=== PATIENT | male | born 1940 | race African-American/Black ===

== ENCOUNTER 2019-08-18 20:35 | Inpatient (IN) | payer MEDICARE, OTHER ==
[~2019-08-18] VITALS: Ht 160 cm; Wt 82.3 kg
[2019-08-18 11:47] VITALS: BP 164/85
[~2019-08-18 20:35] MED LIST: AMLO-500 MT; ASCO500C18 MT; CHOL100022; CYAN250010 PO; FENO145 PO; METO100T16 PO; VITA400C19 PO
[2019-08-18 20:45] VITALS: BP 164/85
[2019-08-18 21:40] VITALS: BP 164/85
[2019-08-18] MEDS ORDERED: ACETAMINOPHEN 325MG TABLET PO PRN (22:30)
[2019-08-18] MEDS ORDERED: BISACODYL 10MG SUPP PR PRN (22:30)
[2019-08-18] MEDS ORDERED: POLYETHYLENE GLYCOL 3350 (17GM) 1 DOSE PACK PO PRN (22:30)
[2019-08-18] MEDS ORDERED: CLONIDINE 0.1MG TABLET PO PRN (22:30)
[2019-08-18] MEDS ORDERED: TRAZODONE HCL 50MG TABLET PO PRN (22:30)
[2019-08-18] MEDS ORDERED: ONDANSETRON HCL 4MG/2ML INJ IV PRN (22:30)
[2019-08-19] MEDS: LACTULOSE 20G/30ML UDC PO SCH ×2 (00:34→13:00)
[2019-08-19] MEDS: SENNOSIDES/DOCUSATE SOD 8.6/50MG TABLET PO SCH ×2 (00:34→21:00)
[2019-08-19 08:00] VITALS: BP 129/63
[2019-08-19] MEDS: CHOLECALCIFEROL (D3) 1000 UNIT TABLET PO SCH (09:00)
[2019-08-19] MEDS: CARBAMIDE PEROXIDE 6.5% OTIC SOLN 15ML LEFT EAR SCH ×2 (10:15→16:09)
[2019-08-19] MEDS: CYANOCOBALAMIN 1000MCG TABLET PO SCH (10:15)
[2019-08-19] MEDS: AMLODIPINE 10MG TABLET PO SCH (10:16)
[2019-08-19] MEDS: MAGNESIUM HYDROXIDE 400MG/5ML 30ML UDC PO SCH (10:16)
[2019-08-19] MEDS: PREDNISONE 20MG TABLET PO SCH (10:16)
[2019-08-19] MEDS: DOCUSATE SODIUM 100MG CAPSULE PO SCH ×2 (10:17→16:09)
[2019-08-19] MEDS: METOPROLOL TARTRATE 50MG TABLET PO SCH (10:17)
[2019-08-19] MEDS: ASPIRIN 81MG TABLET PO SCH (10:17)
[2019-08-19] MEDS: ASCORBIC ACID 500 MG TABLET PO SCH (10:18)
[2019-08-19] MEDS: FENOFIBRATE NANOCRYSTALLIZED 145MG TABLET PO SCH (10:18)
[2019-08-19] MEDS: VITAMIN E ACETATE 400 UNITS CAPSULE PO SCH (10:18)
[2019-08-19] MEDS: HEPARIN 5000 UNITS/ML VIAL SUBCUT SCH ×2 (10:20→21:39)
[2019-08-19 16:01] LABS: BASOPHILS % 0.6 % (0.0-2.0); EOSINOPHILS % 0.2 % (0.0-5.0); HEMOGLOBIN. 14.4 g/dL (14.0-18.0); LYMPHOCYTES % 14.2 % (20.0-50.0); MEAN CORPUSCULAR HEMOGLOBIN 33.3 pg (28.0-32.0); MEAN CORPUSCULAR VOLUME 95.2 fL (80.0-94.0); MEAN PLATELET VOLUME 7.6 fl (7.4-10.4); MONOCYTES % 6.4 % (2.0-8.0); NEUTROPHILS % 78.6 % (40.0-76.0); PLATELET 283 x1000/uL (130-400); RED BLOOD CELL COUNT 4.31 mill/uL (4.7-6.1); RED CELL DISTRIBUTION WIDTH 13.9 % (11.6-14.6)
[2019-08-19 16:08] LABS: CHLORIDE 104 mEq/L (98-107)
[2019-08-19] MEDS ORDERED: HYDROCODONE/ACETAMINOPHEN 5/325MG TABLET PO PRN (16:45)
[2019-08-19 20:00] VITALS: BP 112/67
[2019-08-19] MEDS: POLYETHYLENE GLYCOL 3350 (17GM) 1 DOSE PACK PO SCH ×2 (21:00)
[2019-08-20 08:23] VITALS: BP 104/74
[2019-08-20 08:45] LABS: BASOPHILS % 0.5 % (0.0-2.0); EOSINOPHILS % 1.4 % (0.0-5.0); HEMATOCRIT. 43.5 % (42.0-52.0); HEMOGLOBIN. 14.7 g/dL (14.0-18.0); LYMPHOCYTES % 41.8 % (20.0-50.0); MEAN CORPUSCULAR HEMOGLOBIN 32.3 pg (28.0-32.0); MEAN CORPUSCULAR VOLUME 95.4 fL (80.0-94.0); MEAN PLATELET VOLUME 7.7 fl (7.4-10.4); MONOCYTES % 5.7 % (2.0-8.0); NEUTROPHILS % 50.6 % (40.0-76.0); PLATELET 285 x1000/uL (130-400); RED BLOOD CELL COUNT 4.56 mill/uL (4.7-6.1); RED CELL DISTRIBUTION WIDTH 14.1 % (11.6-14.6)
[2019-08-20 08:56] LABS: CHLORIDE 104 mEq/L (98-107)
[2019-08-20] MEDS: ASCORBIC ACID 500 MG TABLET PO SCH (09:00)
[2019-08-20] MEDS: CARBAMIDE PEROXIDE 6.5% OTIC SOLN 15ML LEFT EAR SCH ×2 (09:00→17:27)
[2019-08-20] MEDS: METOPROLOL TARTRATE 50MG TABLET PO SCH (09:00)
[2019-08-20] MEDS: CYANOCOBALAMIN 1000MCG TABLET PO SCH (09:00)
[2019-08-20] MEDS: ASPIRIN 81MG TABLET PO SCH (09:00)
[2019-08-20] MEDS: CHOLECALCIFEROL (D3) 1000 UNIT TABLET PO SCH (09:00)
[2019-08-20] MEDS: DOCUSATE SODIUM 100MG CAPSULE PO SCH ×2 (09:00→17:27)
[2019-08-20] MEDS: PREDNISONE 20MG TABLET PO SCH (09:00)
[2019-08-20] MEDS: VITAMIN E ACETATE 400 UNITS CAPSULE PO SCH (09:00)
[2019-08-20] MEDS: AMLODIPINE 10MG TABLET PO SCH (09:00)
[2019-08-20] MEDS: HEPARIN 5000 UNITS/ML VIAL SUBCUT SCH ×2 (09:00→22:21)
[2019-08-20] MEDS: FENOFIBRATE NANOCRYSTALLIZED 145MG TABLET PO SCH (09:00)
[2019-08-20] MEDS: MAGNESIUM HYDROXIDE 400MG/5ML 30ML UDC PO SCH (09:00)
[2019-08-20 09:03] LABS: PHOSPHORUS 3.4 mg/dL (2.5-4.9)
[2019-08-20 09:10] LABS: TOTAL IRON BINDING CAPACITY 333 ug/dL (250-450)
[2019-08-20 09:26] LABS: VITAMIN B12 SERUM >2000 pg/mL pg/mL (211-911)
[2019-08-20 20:00] VITALS: BP_SYST 108; BP_SYST 126; BP_DIAS 63; BP_DIAS 72
[2019-08-20 21:16] LABS: CLARITY URINE CLEAR (CLEAR); COLOR URINE YELLOW (YELLOW); KETONES URINE NEGATIVE (NEGATIVE); LEUKOCYTE ESTERASE URINE NEGATIVE (NEGATIVE); NITRITE URINE NEGATIVE (NEGATIVE); OCCULT BLOOD URINE NEGATIVE (NEGATIVE); PROTEIN URINE NEGATIVE (NEGATIVE); UROBILINOGEN URINE 0.2 E.U./dL (0.2-1.0)
[2019-08-20] MEDS: SENNOSIDES/DOCUSATE SOD 8.6/50MG TABLET PO SCH (22:19)
[2019-08-20] MEDS: ZOLPIDEM TARTRATE 5MG TABLET PO SCH (22:19)
[2019-08-20] MEDS: POLYETHYLENE GLYCOL 3350 (17GM) 1 DOSE PACK PO SCH (22:20)
[2019-08-21 08:00] VITALS: BP 143/79
[2019-08-21] MEDS: ASPIRIN 81MG TABLET PO SCH (09:00)
[2019-08-21] MEDS: METOPROLOL TARTRATE 50MG TABLET PO SCH (09:00)
[2019-08-21] MEDS: ASCORBIC ACID 500 MG TABLET PO SCH (09:00)
[2019-08-21] MEDS: VITAMIN E ACETATE 400 UNITS CAPSULE PO SCH (09:00)
[2019-08-21] MEDS: FENOFIBRATE NANOCRYSTALLIZED 145MG TABLET PO SCH (09:01)
[2019-08-21] MEDS: DOCUSATE SODIUM 100MG CAPSULE PO SCH ×2 (09:01→17:15)
[2019-08-21] MEDS: CHOLECALCIFEROL (D3) 1000 UNIT TABLET PO SCH (09:01)
[2019-08-21] MEDS: AMLODIPINE 10MG TABLET PO SCH (09:01)
[2019-08-21] MEDS: PREDNISONE 20MG TABLET PO SCH (09:01)
[2019-08-21] MEDS: CYANOCOBALAMIN 1000MCG TABLET PO SCH (09:01)
[2019-08-21] MEDS: HEPARIN 5000 UNITS/ML VIAL SUBCUT SCH ×2 (09:02→21:46)
[2019-08-21] MEDS: CARBAMIDE PEROXIDE 6.5% OTIC SOLN 15ML LEFT EAR SCH ×2 (09:02→17:16)
[2019-08-21] MEDS: MAGNESIUM HYDROXIDE 400MG/5ML 30ML UDC PO SCH ×2 (09:02→17:15)
[2019-08-21] MEDS: MECLIZINE 25MG TABLET PO PRN (14:38)
[2019-08-21] MEDS: LACTULOSE 20G/30ML UDC PO SCH ×2 (17:15→21:45)
[2019-08-21 20:00] VITALS: BP_SYST 118; BP_SYST 132; BP_DIAS 68; BP_DIAS 73
[2019-08-21] MEDS: SENNOSIDES/DOCUSATE SOD 8.6/50MG TABLET PO SCH (21:45)
[2019-08-21] MEDS: POLYETHYLENE GLYCOL 3350 (17GM) 1 DOSE PACK PO SCH (21:45)
[2019-08-21] MEDS: ZOLPIDEM TARTRATE 5MG TABLET PO SCH (21:45)
[2019-08-22 07:04] LABS: T4 FREE 1.19 ng/dL (0.76-1.46)
[2019-08-22 08:05] VITALS: BP 136/74
[2019-08-22] MEDS: LACTULOSE 20G/30ML UDC PO SCH (09:00)
[2019-08-22] MEDS: MECLIZINE 25MG TABLET PO PRN (09:41)
[2019-08-22] MEDS: FENOFIBRATE NANOCRYSTALLIZED 145MG TABLET PO SCH (09:41)
[2019-08-22] MEDS: MAGNESIUM HYDROXIDE 400MG/5ML 30ML UDC PO SCH ×2 (09:41→16:40)
[2019-08-22] MEDS: METOPROLOL TARTRATE 50MG TABLET PO SCH (09:41)
[2019-08-22] MEDS: HEPARIN 5000 UNITS/ML VIAL SUBCUT SCH ×2 (09:41→22:16)
[2019-08-22] MEDS: CYANOCOBALAMIN 1000MCG TABLET PO SCH (09:41)
[2019-08-22] MEDS: VITAMIN E ACETATE 400 UNITS CAPSULE PO SCH (09:41)
[2019-08-22] MEDS: AMLODIPINE 10MG TABLET PO SCH (09:42)
[2019-08-22] MEDS: ASPIRIN 81MG TABLET PO SCH (09:42)
[2019-08-22] MEDS: DOCUSATE SODIUM 100MG CAPSULE PO SCH ×2 (09:42→16:40)
[2019-08-22] MEDS: CARBAMIDE PEROXIDE 6.5% OTIC SOLN 15ML LEFT EAR SCH ×2 (09:43→16:40)
[2019-08-22] MEDS: ASCORBIC ACID 500 MG TABLET PO SCH (09:45)
[2019-08-22] MEDS: CHOLECALCIFEROL (D3) 1000 UNIT TABLET PO SCH (09:45)
[2019-08-22 20:00] VITALS: BP_SYST 120; BP_SYST 129; BP_DIAS 66; BP_DIAS 69
[2019-08-22] MEDS: SENNOSIDES/DOCUSATE SOD 8.6/50MG TABLET PO SCH (22:15)
[2019-08-22] MEDS: POLYETHYLENE GLYCOL 3350 (17GM) 1 DOSE PACK PO SCH (22:16)
[2019-08-22] MEDS: ZOLPIDEM TARTRATE 5MG TABLET PO SCH (22:16)
[2019-08-23 06:36] LABS: BASOPHILS % 0.6 % (0.0-2.0); HEMATOCRIT. 40.7 % (42.0-52.0); HEMOGLOBIN. 14.2 g/dL (14.0-18.0); LYMPHOCYTES % 48.4 % (20.0-50.0); MEAN CORPUSCULAR HEMOGLOBIN 32.8 pg (28.0-32.0); MEAN CORPUSCULAR VOLUME 94.3 fL (80.0-94.0); MEAN PLATELET VOLUME 7.5 fl (7.4-10.4); MONOCYTES % 10.3 % (2.0-8.0); NEUTROPHILS % 36.7 % (40.0-76.0); PLATELET 299 x1000/uL (130-400); RED BLOOD CELL COUNT 4.32 mill/uL (4.7-6.1); RED CELL DISTRIBUTION WIDTH 13.7 % (11.6-14.6)
[2019-08-23 08:08] VITALS: BP 125/67
[2019-08-23] MEDS: HEPARIN 5000 UNITS/ML VIAL SUBCUT SCH ×2 (08:40→20:24)
[2019-08-23] MEDS: DOCUSATE SODIUM 100MG CAPSULE PO SCH ×2 (08:40→16:08)
[2019-08-23] MEDS: MAGNESIUM HYDROXIDE 400MG/5ML 30ML UDC PO SCH ×2 (08:40→16:08)
[2019-08-23] MEDS: ASPIRIN 81MG TABLET PO SCH (08:40)
[2019-08-23] MEDS: VITAMIN E ACETATE 400 UNITS CAPSULE PO SCH (08:40)
[2019-08-23] MEDS: CARBAMIDE PEROXIDE 6.5% OTIC SOLN 15ML LEFT EAR SCH ×2 (08:40→16:08)
[2019-08-23] MEDS: ASCORBIC ACID 500 MG TABLET PO SCH (08:40)
[2019-08-23] MEDS: CHOLECALCIFEROL (D3) 1000 UNIT TABLET PO SCH (08:41)
[2019-08-23] MEDS: AMLODIPINE 10MG TABLET PO SCH (08:41)
[2019-08-23] MEDS: CYANOCOBALAMIN 1000MCG TABLET PO SCH (08:41)
[2019-08-23] MEDS: FENOFIBRATE NANOCRYSTALLIZED 145MG TABLET PO SCH (08:41)
[2019-08-23] MEDS: METOPROLOL TARTRATE 25MG TABLET PO SCH (08:41)
[2019-08-23] MEDS: MECLIZINE 25MG TABLET PO PRN (08:45)
[2019-08-23 20:00] VITALS: BP 147/71
[2019-08-23] MEDS: POLYETHYLENE GLYCOL 3350 (17GM) 1 DOSE PACK PO SCH (20:24)
[2019-08-23] MEDS: ZOLPIDEM TARTRATE 5MG TABLET PO SCH (20:24)
[2019-08-23] MEDS: SENNOSIDES/DOCUSATE SOD 8.6/50MG TABLET PO SCH (20:24)
[2019-08-24 08:00] VITALS: BP 124/67
[2019-08-24 09:06] LABS: 25-HYDROXY VITAMIN D3 33 ng/mL (.)
[2019-08-24] MEDS: CHOLECALCIFEROL (D3) 1000 UNIT TABLET PO SCH (09:29)
[2019-08-24] MEDS: ASPIRIN 81MG TABLET PO SCH (09:29)
[2019-08-24] MEDS: ASCORBIC ACID 500 MG TABLET PO SCH (09:29)
[2019-08-24] MEDS: CYANOCOBALAMIN 1000MCG TABLET PO SCH (09:29)
[2019-08-24] MEDS: FENOFIBRATE NANOCRYSTALLIZED 145MG TABLET PO SCH (09:29)
[2019-08-24] MEDS: AMLODIPINE 10MG TABLET PO SCH (09:30)
[2019-08-24] MEDS: HEPARIN 5000 UNITS/ML VIAL SUBCUT SCH ×2 (09:31→20:54)
[2019-08-24] MEDS: METOPROLOL TARTRATE 25MG TABLET PO SCH (09:32)
[2019-08-24] MEDS: DOCUSATE SODIUM 100MG CAPSULE PO SCH ×2 (09:37→17:30)
[2019-08-24] MEDS: VITAMIN E ACETATE 400 UNITS CAPSULE PO SCH (09:37)
[2019-08-24] MEDS: CARBAMIDE PEROXIDE 6.5% OTIC SOLN 15ML LEFT EAR SCH ×2 (09:38→17:32)
[2019-08-24] MEDS: MAGNESIUM HYDROXIDE 400MG/5ML 30ML UDC PO SCH ×3 (09:39→17:36)
[2019-08-24] MEDS: MECLIZINE 25MG TABLET PO PRN (12:31)
[2019-08-24 16:00] VITALS: BP_SYST 110; BP_SYST 118; BP_SYST 142; BP_DIAS 61; BP_DIAS 66; BP_DIAS 82
[2019-08-24] MEDS ORDERED: ERGOCALCIFEROL 50000UNITS CAPSULE PO SCH (16:00)
[2019-08-24] MEDS: CITALOPRAM HYDROBROMIDE 10MG TABLET PO SCH (17:30)
[2019-08-24 20:00] VITALS: BP 127/63
[2019-08-24] MEDS: ZOLPIDEM TARTRATE 5MG TABLET PO SCH (20:53)
[2019-08-24] MEDS: SENNOSIDES/DOCUSATE SOD 8.6/50MG TABLET PO SCH (20:54)
[2019-08-25 08:27] VITALS: BP 125/71
[2019-08-25] MEDS: METOPROLOL TARTRATE 25MG TABLET PO SCH ×2 (09:00→09:03)
[2019-08-25] MEDS: ASCORBIC ACID 500 MG TABLET PO SCH (09:02)
[2019-08-25] MEDS: DOCUSATE SODIUM 100MG CAPSULE PO SCH ×2 (09:02→17:02)
[2019-08-25] MEDS: CYANOCOBALAMIN 1000MCG TABLET PO SCH (09:02)
[2019-08-25] MEDS: VITAMIN E ACETATE 400 UNITS CAPSULE PO SCH (09:02)
[2019-08-25] MEDS: CITALOPRAM HYDROBROMIDE 10MG TABLET PO SCH (09:03)
[2019-08-25] MEDS: ASPIRIN 81MG TABLET PO SCH (09:03)
[2019-08-25] MEDS: FENOFIBRATE NANOCRYSTALLIZED 145MG TABLET PO SCH (09:03)
[2019-08-25] MEDS: CARBAMIDE PEROXIDE 6.5% OTIC SOLN 15ML LEFT EAR SCH ×2 (09:04→17:01)
[2019-08-25] MEDS: HEPARIN 5000 UNITS/ML VIAL SUBCUT SCH ×2 (09:04→22:10)
[2019-08-25] MEDS: AMLODIPINE 10MG TABLET PO SCH (09:04)
[2019-08-25] MEDS: HYDROCODONE/ACETAMINOPHEN 5/325MG TABLET PO PRN (11:00)
[2019-08-25] MEDS: MAGNESIUM HYDROXIDE 400MG/5ML 30ML UDC PO SCH (17:01)
[2019-08-25 20:00] VITALS: BP 117/84
[2019-08-25] MEDS: ZOLPIDEM TARTRATE 5MG TABLET PO SCH (21:00)
[2019-08-25] MEDS ORDERED: ZOLPIDEM TARTRATE 5MG TABLET PO SCH (21:00)
[2019-08-25] MEDS: SENNOSIDES/DOCUSATE SOD 8.6/50MG TABLET PO SCH (22:09)
[2019-08-26 07:52] VITALS: BP 147/72
[2019-08-26 08:00] VITALS: BP 141/78
[2019-08-26] MEDS: MAGNESIUM HYDROXIDE 400MG/5ML 30ML UDC PO SCH ×3 (08:34→16:46)
[2019-08-26] MEDS: METOPROLOL TARTRATE 25MG TABLET PO SCH (08:34)
[2019-08-26] MEDS: FENOFIBRATE NANOCRYSTALLIZED 145MG TABLET PO SCH (08:35)
[2019-08-26] MEDS: AMLODIPINE 10MG TABLET PO SCH (08:35)
[2019-08-26] MEDS: CITALOPRAM HYDROBROMIDE 10MG TABLET PO SCH (08:35)
[2019-08-26] MEDS: ASCORBIC ACID 500 MG TABLET PO SCH (08:35)
[2019-08-26] MEDS: VITAMIN E ACETATE 400 UNITS CAPSULE PO SCH (08:35)
[2019-08-26] MEDS: CYANOCOBALAMIN 1000MCG TABLET PO SCH (08:35)
[2019-08-26] MEDS: HEPARIN 5000 UNITS/ML VIAL SUBCUT SCH ×2 (08:36→20:46)
[2019-08-26] MEDS: DOCUSATE SODIUM 100MG CAPSULE PO SCH ×2 (08:36→16:45)
[2019-08-26] MEDS: ASPIRIN 81MG TABLET PO SCH (08:39)
[2019-08-26] MEDS: CARBAMIDE PEROXIDE 6.5% OTIC SOLN 15ML LEFT EAR SCH (09:38)
[2019-08-26 20:00] VITALS: BP 125/77
[2019-08-26] MEDS: SENNOSIDES/DOCUSATE SOD 8.6/50MG TABLET PO SCH (20:45)
[2019-08-26] MEDS: ZOLPIDEM TARTRATE 5MG TABLET PO PRN (20:45)
[2019-08-26 20:51] VITALS: BP_SYST 117; BP_SYST 137; BP_SYST 139; BP_DIAS 72; BP_DIAS 74; BP_DIAS 77
[2019-08-27 07:20] LABS: EOSINOPHILS % 4.4 % (0.0-5.0); HEMATOCRIT. 40.3 % (42.0-52.0); HEMOGLOBIN. 14.1 g/dL (14.0-18.0); LYMPHOCYTES % 45.8 % (20.0-50.0); MEAN CORPUSCULAR VOLUME 94.5 fL (80.0-94.0); PLATELET 294 x1000/uL (130-400); RED BLOOD CELL COUNT 4.26 mill/uL (4.7-6.1)
[2019-08-27 07:21] LABS: BASOPHILS % 0.8 % (0.0-2.0)
[2019-08-27 08:00] VITALS: BP_SYST 123; BP_SYST 131; BP_SYST 144; BP_DIAS 65; BP_DIAS 68; BP_DIAS 78
[2019-08-27] MEDS: MAGNESIUM HYDROXIDE 400MG/5ML 30ML UDC PO SCH ×2 (09:00→16:49)
[2019-08-27] MEDS: METOPROLOL TARTRATE 25MG TABLET PO SCH (09:00)
[2019-08-27] MEDS: HEPARIN 5000 UNITS/ML VIAL SUBCUT SCH ×2 (09:03→21:36)
[2019-08-27] MEDS: ASCORBIC ACID 500 MG TABLET PO SCH (09:25)
[2019-08-27] MEDS: CYANOCOBALAMIN 1000MCG TABLET PO SCH (09:25)
[2019-08-27] MEDS: ASPIRIN 81MG TABLET PO SCH (09:25)
[2019-08-27] MEDS: CITALOPRAM HYDROBROMIDE 10MG TABLET PO SCH (09:26)
[2019-08-27] MEDS: HYDROCODONE/ACETAMINOPHEN 5/325MG TABLET PO PRN (09:26)
[2019-08-27] MEDS: FENOFIBRATE NANOCRYSTALLIZED 145MG TABLET PO SCH (09:26)
[2019-08-27] MEDS: VITAMIN E ACETATE 400 UNITS CAPSULE PO SCH (09:26)
[2019-08-27] MEDS: AMLODIPINE 10MG TABLET PO SCH (09:26)
[2019-08-27] MEDS: DOCUSATE SODIUM 100MG CAPSULE PO SCH ×2 (09:26→16:49)
[2019-08-27 20:00] VITALS: BP_SYST 128; BP_SYST 142; BP_DIAS 69; BP_DIAS 84
[2019-08-27 21:00] VITALS: BP_SYST 128; BP_SYST 130; BP_SYST 138; BP_DIAS 74; BP_DIAS 77; BP_DIAS 80
[2019-08-27] MEDS: SENNOSIDES/DOCUSATE SOD 8.6/50MG TABLET PO SCH (21:35)
[2019-08-27] MEDS: ZOLPIDEM TARTRATE 5MG TABLET PO PRN (21:51)
[2019-08-28 08:00] VITALS: BP 146/80
[2019-08-28] MEDS: ASPIRIN 81MG TABLET PO SCH (09:20)
[2019-08-28] MEDS: DOCUSATE SODIUM 100MG CAPSULE PO SCH ×2 (09:20→16:24)
[2019-08-28] MEDS: VITAMIN E ACETATE 400 UNITS CAPSULE PO SCH (09:20)
[2019-08-28] MEDS: MAGNESIUM HYDROXIDE 400MG/5ML 30ML UDC PO SCH ×2 (09:20→16:23)
[2019-08-28] MEDS: FENOFIBRATE NANOCRYSTALLIZED 145MG TABLET PO SCH (09:20)
[2019-08-28] MEDS: ASCORBIC ACID 500 MG TABLET PO SCH (09:21)
[2019-08-28] MEDS: CITALOPRAM HYDROBROMIDE 10MG TABLET PO SCH (09:21)
[2019-08-28] MEDS: HEPARIN 5000 UNITS/ML VIAL SUBCUT SCH ×2 (09:21→21:42)
[2019-08-28] MEDS: METOPROLOL TARTRATE 25MG TABLET PO SCH (09:22)
[2019-08-28] MEDS: AMLODIPINE 10MG TABLET PO SCH (09:22)
[2019-08-28] MEDS: CYANOCOBALAMIN 1000MCG TABLET PO SCH (10:49)
[2019-08-28] MEDS ORDERED: CITA10TA16 PO (14:28)
[2019-08-28] MEDS ORDERED: TOPUD PO (14:28)
[2019-08-28] MEDS ORDERED: ASPI-1160 PO (14:28)
[2019-08-28] MEDS ORDERED: METO25TA6 PO (14:28)
[2019-08-28] MEDS ORDERED: FENO145 PO (14:28)
[2019-08-28] MEDS ORDERED: AMLO10TA80 PO (14:28)
[2019-08-28] MEDS ORDERED: MOM PO (14:28)
[2019-08-28] MEDS ORDERED: SENN-3 PO (14:28)
[2019-08-28] MEDS ORDERED: DOCU-150 PO (14:28)
[2019-08-28] MEDS ORDERED: MECL-159 MT (14:29)
[2019-08-28] MEDS ORDERED: CITALOPRAM HYDROBROMIDE 10MG TABLET PO NR (14:30)
[2019-08-28 19:39] LABS: FERRITIN 131 ng/mL (22-322)
[2019-08-28 20:00] VITALS: BP 153/83
[2019-08-28] MEDS ORDERED: TRAZODONE HCL 50MG TABLET PO SCH (21:00)
[2019-08-28 21:32] LABS: PROSTRATE SPECIFIC AG TOTAL 1.03 ng/mL (0.0-4.0)
[2019-08-28] MEDS: SENNOSIDES/DOCUSATE SOD 8.6/50MG TABLET PO SCH (21:41)
[2019-08-29 08:00] VITALS: BP 152/84
[2019-08-29] MEDS: MAGNESIUM HYDROXIDE 400MG/5ML 30ML UDC PO SCH ×2 (08:50→16:30)
[2019-08-29] MEDS: FENOFIBRATE NANOCRYSTALLIZED 145MG TABLET PO SCH (08:50)
[2019-08-29] MEDS: HEPARIN 5000 UNITS/ML VIAL SUBCUT SCH (08:50)
[2019-08-29] MEDS: ASCORBIC ACID 500 MG TABLET PO SCH (08:52)
[2019-08-29] MEDS: ASPIRIN 81MG TABLET PO SCH (08:52)
[2019-08-29] MEDS: CYANOCOBALAMIN 1000MCG TABLET PO SCH (08:52)
[2019-08-29] MEDS: VITAMIN E ACETATE 400 UNITS CAPSULE PO SCH (08:52)
[2019-08-29] MEDS: METOPROLOL TARTRATE 25MG TABLET PO SCH (08:52)
[2019-08-29] MEDS: AMLODIPINE 10MG TABLET PO SCH (08:52)
[2019-08-29] MEDS: DOCUSATE SODIUM 100MG CAPSULE PO SCH ×2 (08:56→16:30)
[2019-08-29] MEDS ORDERED: CITALOPRAM HYDROBROMIDE 10MG TABLET PO SCH (09:00)
[2019-08-29 12:31] VITALS: BP 136/73
== END 2019-08-29 18:10 | disposition home health service (06) | DRG 155 ==
PROVIDERS: ADMIT Physical Medicine & Rehabilitation Spinal Cord Injury Medicine; ATTEND Internal Medicine
PROC: 4A00X4Z Measurement of Central Nervous Electrical Activity, External Approach (ICD-10-PCS; principal; 2019-08-18)
DX: H93.3X2 Disorders of left acoustic nerve (principal); N17.9 Acute kidney failure, unspecified; D64.9 Anemia, unspecified; E78.5 Hyperlipidemia, unspecified; K21.9 Gastro-esophageal reflux disease without esophagitis; J44.9 Chronic obstructive pulmonary disease, unspecified; F17.210 Nicotine dependence, cigarettes, uncomplicated; G62.9 Polyneuropathy, unspecified; I73.9 Peripheral vascular disease, unspecified; K59.00 Constipation, unspecified; E03.9 Hypothyroidism, unspecified; B35.1 Tinea unguium; G47.00 Insomnia, unspecified; G47.30 Sleep apnea, unspecified; K42.9 Umbilical hernia without obstruction or gangrene; M17.0 Bilateral primary osteoarthritis of knee; R73.9 Hyperglycemia, unspecified; G90.8 Other disorders of autonomic nervous system; I12.9 Hypertensive chronic kidney disease with stage 1 through stage 4 chronic kidney disease, or unspecified chronic kidney disease; N18.9 Chronic kidney disease, unspecified; Z79.899 Other long term (current) drug therapy; Z83.3 Family history of diabetes mellitus; R20.0 Anesthesia of skin; J20.9 Acute bronchitis, unspecified; R53.81 Other malaise; H83.02 Labyrinthitis, left ear; E55.9 Vitamin D deficiency, unspecified
CPT/HCPCS: 36415; 80048; 80053; 81003; 82306; 82607; 82728; 82746; 83036; 83540; 83550; 83735; 84100; 84134; 84153; 84439; 84443; 84481; 85025; 86376; 93970; 97110; 97112; 97116; 97162; 97166; 97530; 97535; J1644; J7512; J8597; G0103

== ENCOUNTER 2024-05-19 20:35 | Inpatient (IN) | payer MEDICARE, MEDICAID ==
[~2024-05-19] VITALS: Ht 162.6 cm; Wt 82.1 kg
[2024-05-19 19:55] VITALS: BP 128/62; PULSE 74; RESP 18; TEMP 36.5; O2SAT 97
[2024-05-19 20:00] VITALS: BP 128/62; PULSE 74; RESP 18; TEMP 36.5
[~2024-05-19 20:35] MED LIST changes: -AMLO-500 MT; +AMLO10TA80 PO; +ASPI-1160 PO; +CITA10TA16 PO; +DOCU-422 PO; +MECL-299 MT; -METO100T16 PO; +METO25TA6 PO; +MOM PO; +SENN-3 PO; +SUMA100T16 PO; +TOPUD PO; +VITA-358 PO; -VITA400C19 PO
[2024-05-19] MEDS ORDERED: NALOXONE HCL 0.4MG/ML 1ML VIAL IV PRN (21:00)
[2024-05-19] MEDS ORDERED: SUMATRIPTAN SUCCINATE 25MG TABLET PO PRN (21:00)
[2024-05-19] MEDS: METOPROLOL TARTRATE 50MG TABLET PO SCH (22:15)
[2024-05-19] MEDS: DOCUSATE SODIUM 100MG CAPSULE PO SCH (22:15)
[2024-05-19] MEDS: LACTATED RINGERS 1,000 ML IV SCH (22:15)
[2024-05-19] MEDS: OXYBUTYNIN CHLORIDE 5MG TABLET PO SCH (22:15)
[2024-05-19] MEDS: HYDROCODONE/ACETAMINOPHEN 10/325MG TABLET PO PRN (22:18)
[2024-05-20] MEDS: CEFTRIAXONE 1GM/50ML 50 ML IV SCH (05:01)
[2024-05-20 07:03] LABS: CHLORIDE 98 mEq/L (98-107); POTASSIUM 4.5 mEq/L (3.5-5.1); SODIUM 134 mEq/L (136-145)
[2024-05-20 07:07] LABS: CALCIUM 9.7 mg/dL (8.7-10.4); CARBON DIOXIDE 29 mEq/L (21-32)
[2024-05-20 07:09] LABS: BASOPHILS % 0.5 % (0.0-2.0); EOSINOPHILS % 5.9 % (0.0-5.0); HEMATOCRIT. 29.9 % (42.0-52.0); HEMOGLOBIN. 10.1 g/dL (14.0-18.0); LYMPHOCYTES % 26.8 % (20.0-50.0); MEAN CORPUSCULAR HEMOGLOBIN 31.5 pg (28.0-32.0); MEAN CORPUSCULAR VOLUME 92.7 fL (80.0-94.0); MEAN PLATELET VOLUME 6.9 fl (7.4-10.4); MONOCYTES % 13.2 % (2.0-8.0); NEUTROPHILS % 53.6 % (40.0-76.0); PLATELET 385 x1000/uL (130-400); RED BLOOD CELL COUNT 3.22 mill/uL (4.7-6.1); RED CELL DISTRIBUTION WIDTH 12.8 % (11.6-14.6); WHITE BLOOD COUNT 6.7 x1000/uL (4.5-11.0)
[2024-05-20 07:12] LABS: CREATININE 1.2 mg/dL (0.6-1.3); GLUCOSE 91 mg/dL (70-105); UREA NITROGEN BLOOD 24 mg/dL (9-23)
[2024-05-20 07:14] LABS: ALANINE AMINOTRANSFERASE 29 IU/L (10-49); ALBUMIN 3.3 g/dL (3.2-4.8); ASPARTATE AMINOTRANSFERASE 34 IU/L (<34); BILIRUBIN TOTAL 0.3 mg/dL (0.1-1.0); PREALBUMIN 9.5 mg/dl (10.0-40.0)
[2024-05-20 07:15] LABS: PROTEIN TOTAL 6.7 g/dL (6.0-8.3)
[2024-05-20 08:00] VITALS: BP 137/63; PULSE 52; RESP 19; TEMP 35.8; O2SAT 99
[2024-05-20] MEDS: CITALOPRAM HYDROBROMIDE 10MG TABLET PO SCH (08:51)
[2024-05-20] MEDS: AMLODIPINE 10MG TABLET PO SCH (08:51)
[2024-05-20] MEDS: ASPIRIN 81MG TABLET PO SCH (08:51)
[2024-05-20] MEDS: LACTULOSE 20G/30ML UDC PO STA (13:43)
[2024-05-20 20:00] VITALS: BP 149/72; PULSE 68; RESP 20; TEMP 36.6; O2SAT 97
[2024-05-21 08:00] VITALS: BP 152/65; PULSE 58; RESP 19; TEMP 36.1; O2SAT 98
[2024-05-21] MEDS: LEVOFLOXACIN 500MG TABLET PO SCH (11:27)
[2024-05-21 11:35] LABS: BASOPHILS % 0.5 % (0.0-2.0); EOSINOPHILS % 4.5 % (0.0-5.0); HEMATOCRIT. 28.6 % (42.0-52.0); HEMOGLOBIN. 9.8 g/dL (14.0-18.0); LYMPHOCYTES % 18.2 % (20.0-50.0); MEAN CORPUSCULAR HEMOGLOBIN 31.6 pg (28.0-32.0); MEAN CORPUSCULAR HGB CONC 34.2 g/dL (31.0-37.0); MEAN CORPUSCULAR VOLUME 92.3 fL (80.0-94.0); MEAN PLATELET VOLUME 6.5 fl (7.4-10.4); MONOCYTES % 10.9 % (2.0-8.0); NEUTROPHILS % 65.9 % (40.0-76.0); PLATELET 401 x1000/uL (130-400); RED CELL DISTRIBUTION WIDTH 12.8 % (11.6-14.6); WHITE BLOOD COUNT 7.3 x1000/uL (4.5-11.0)
[2024-05-21 11:50] LABS: CHLORIDE 95 mEq/L (98-107); POTASSIUM 3.7 mEq/L (3.5-5.1); SODIUM 131 mEq/L (136-145)
[2024-05-21 11:51] LABS: CALCIUM 9.4 mg/dL (8.7-10.4); CARBON DIOXIDE 27 mEq/L (21-32)
[2024-05-21 11:55] LABS: IRON 46 ug/dL (65-175)
[2024-05-21 11:56] LABS: AMMONIA 26 uMol/L (<32); CREATININE 1.1 mg/dL (0.6-1.3); GLUCOSE 110 mg/dL (70-105); UREA NITROGEN BLOOD 19 mg/dL (9-23)
[2024-05-21 11:57] LABS: ALANINE AMINOTRANSFERASE 31 IU/L (10-49)
[2024-05-21 11:58] LABS: ALBUMIN 3.3 g/dL (3.2-4.8); ASPARTATE AMINOTRANSFERASE 36 IU/L (<34); BILIRUBIN TOTAL 0.3 mg/dL (0.1-1.0); CREATINE KINASE 155 IU/L (46-171); PROTEIN TOTAL 6.6 g/dL (6.0-8.3); TOTAL IRON BINDING CAPACITY 471 ug/dl (250-425)
[2024-05-21 11:59] LABS: FERRITIN 194 ng/mL (22-322); FOLIC ACID (FOLATE) SERUM 10.48 ng/mL (>5.38)
[2024-05-21 12:00] LABS: THYROID STIMULATING HORMONE 7.12 uIU/mL (0.55-4.78)
[2024-05-21 12:09] LABS: VITAMIN B12 SERUM > 2000 pg/mL (211-911)
[2024-05-21] MEDS: BISACODYL 10MG SUPP PR NR (14:09)
[2024-05-21] MEDS: LACTULOSE 20G/30ML UDC PO SCH (14:09)
[2024-05-21 20:00] VITALS: BP 133/60; PULSE 56; RESP 18; TEMP 35.9; O2SAT 99
[2024-05-22 08:00] VITALS: BP 147/69; PULSE 68; RESP 19; TEMP 36.1; O2SAT 99
[2024-05-22 11:31] LABS: BASOPHILS % 0.5 % (0.0-2.0); EOSINOPHILS % 3.3 % (0.0-5.0); HEMATOCRIT. 29.7 % (42.0-52.0); HEMOGLOBIN. 10.1 g/dL (14.0-18.0); LYMPHOCYTES % 18.9 % (20.0-50.0); MEAN CORPUSCULAR HEMOGLOBIN 31.7 pg (28.0-32.0); MEAN CORPUSCULAR HGB CONC 34.1 g/dL (31.0-37.0); MEAN PLATELET VOLUME 6.9 fl (7.4-10.4); MONOCYTES % 10.3 % (2.0-8.0); PLATELET 427 x1000/uL (130-400); RED BLOOD CELL COUNT 3.19 mill/uL (4.7-6.1); RED CELL DISTRIBUTION WIDTH 12.8 % (11.6-14.6); WHITE BLOOD COUNT 6.9 x1000/uL (4.5-11.0)
[2024-05-22 11:40] LABS: CHLORIDE 93 mEq/L (98-107); POTASSIUM 3.6 mEq/L (3.5-5.1)
[2024-05-22 11:41] LABS: CARBON DIOXIDE 29 mEq/L (21-32); SODIUM 132 mEq/L (136-145)
[2024-05-22 11:42] LABS: CALCIUM 9.8 mg/dL (8.7-10.4)
[2024-05-22 11:46] LABS: CREATININE 1.3 mg/dL (0.6-1.3)
[2024-05-22 11:47] LABS: GLUCOSE 84 mg/dL (70-105); UREA NITROGEN BLOOD 17 mg/dL (9-23)
[2024-05-22 11:57] LABS: VITAMIN B12 SERUM > 2000 pg/mL (211-911)
[2024-05-22 20:00] VITALS: BP 154/69; PULSE 68; RESP 20; TEMP 36.7; O2SAT 98
[2024-05-23 08:00] VITALS: BP 127/65; PULSE 68; RESP 18; TEMP 36.3; O2SAT 97
[2024-05-23 11:10] VITALS: BP 127/65; PULSE 68; RESP 18; TEMP 36.3; O2SAT 97
[2024-05-23] MEDS: ERGOCALCIFEROL 50000UNITS CAPSULE PO SCH (17:41)
[2024-05-23 20:11] VITALS: BP 141/62; PULSE 54; RESP 19; TEMP 36.2; O2SAT 98
[2024-05-24 08:00] VITALS: BP 150/69; PULSE 58; RESP 16; TEMP 36.4; O2SAT 98
[2024-05-24 18:19] LABS: BASOPHILS % 1.3 % (0.0-2.0); EOSINOPHILS % 4.1 % (0.0-5.0); HEMATOCRIT. 31.9 % (42.0-52.0); HEMOGLOBIN. 10.7 g/dL (14.0-18.0); LYMPHOCYTES % 25.1 % (20.0-50.0); MEAN CORPUSCULAR HEMOGLOBIN 31.5 pg (28.0-32.0); MEAN CORPUSCULAR HGB CONC 33.5 g/dL (31.0-37.0); MEAN PLATELET VOLUME 6.7 fl (7.4-10.4); MONOCYTES % 14.3 % (2.0-8.0); NEUTROPHILS % 55.2 % (40.0-76.0); PLATELET 454 x1000/uL (130-400); RED BLOOD CELL COUNT 3.39 mill/uL (4.7-6.1); WHITE BLOOD COUNT 7.6 x1000/uL (4.5-11.0)
[2024-05-24 18:27] LABS: CHLORIDE 96 mEq/L (98-107); SODIUM 135 mEq/L (136-145)
[2024-05-24 18:28] LABS: CARBON DIOXIDE 30 mEq/L (21-32)
[2024-05-24 18:29] LABS: CALCIUM 9.9 mg/dL (8.7-10.4)
[2024-05-24 18:33] LABS: CREATININE 1.2 mg/dL (0.6-1.3); GLUCOSE 105 mg/dL (70-105); UREA NITROGEN BLOOD 16 mg/dL (9-23)
[2024-05-24 20:00] VITALS: BP 125/70; PULSE 66; RESP 20; TEMP 36.1; O2SAT 98
[2024-05-25 08:00] VITALS: BP 155/76; PULSE 65; RESP 19; TEMP 36.8; O2SAT 98
[2024-05-25] MEDS: HYDROCODONE/ACETAMINOPHEN 10/325MG TABLET PO PRN (12:11)
[2024-05-25 20:12] VITALS: BP 146/77; PULSE 91; RESP 20; TEMP 36.5; O2SAT 99
[2024-05-26 08:00] VITALS: BP 125/59; PULSE 60; RESP 18; TEMP 36.4; O2SAT 99
[2024-05-26 20:08] VITALS: BP 141/62; PULSE 77; RESP 19; TEMP 36.5; O2SAT 97
[2024-05-27 08:00] VITALS: BP 148/65; PULSE 64; RESP 19; TEMP 36.2; O2SAT 96
[2024-05-27] MEDS: DOCUSATE SODIUM 100MG CAPSULE PO SCH (09:31)
[2024-05-27] MEDS: LACTULOSE 20G/30ML UDC PO SCH (09:31)
[2024-05-27] MEDS: MECLIZINE 25MG TABLET PO PRN (09:34)
[2024-05-27] MEDS: LACTULOSE 20G/30ML UDC PO PRN (14:49)
[2024-05-27 20:00] VITALS: BP 129/53; PULSE 64; RESP 19; TEMP 36.3; O2SAT 99
[2024-05-27] MEDS: FENOFIBRATE NANOCRYSTALLIZED 145MG TABLET PO SCH (21:03)
[2024-05-27] MEDS: DOCUSATE SODIUM 100MG CAPSULE PO PRN (21:04)
[2024-05-28 08:00] VITALS: BP 129/55; PULSE 55; RESP 18; TEMP 36.3; O2SAT 97
[2024-05-28 20:00] VITALS: BP 124/42; PULSE 95; RESP 18; TEMP 36.6; O2SAT 98
[2024-05-29 08:00] VITALS: BP 148/70; PULSE 57; RESP 57; TEMP 36.2; O2SAT 99
[2024-05-29 20:00] VITALS: BP 135/59; PULSE 74; RESP 19; TEMP 36.7; O2SAT 99
[2024-05-30 06:52] LABS: CARBON DIOXIDE 28 mEq/L (21-32); CHLORIDE 98 mEq/L (98-107); POTASSIUM 3.7 mEq/L (3.5-5.1); SODIUM 135 mEq/L (136-145)
[2024-05-30 06:53] LABS: CALCIUM 9.4 mg/dL (8.7-10.4)
[2024-05-30 06:56] LABS: CREATININE 1.2 mg/dL (0.6-1.3)
[2024-05-30 06:57] LABS: GLUCOSE 86 mg/dL (70-105)
[2024-05-30 06:58] LABS: UREA NITROGEN BLOOD 15 mg/dL (9-23)
[2024-05-30 07:02] LABS: HEMATOCRIT. 30.4 % (42.0-52.0); HEMOGLOBIN. 10.4 g/dL (14.0-18.0); MEAN CORPUSCULAR HEMOGLOBIN 31.7 pg (28.0-32.0); MEAN CORPUSCULAR HGB CONC 34.3 g/dL (31.0-37.0); MEAN CORPUSCULAR VOLUME 92.4 fL (80.0-94.0); MEAN PLATELET VOLUME 6.7 fl (7.4-10.4); PLATELET 419 x1000/uL (130-400); RED BLOOD CELL COUNT 3.29 mill/uL (4.7-6.1); RED CELL DISTRIBUTION WIDTH 13.6 % (11.6-14.6); WHITE BLOOD COUNT 7.4 x1000/uL (4.5-11.0)
[2024-05-30 08:00] VITALS: BP 130/57; PULSE 65; RESP 18; TEMP 36.5; O2SAT 98
[2024-05-30 08:08] LABS: DIFFERENTIAL COMMENT 1
[2024-05-30 17:33] LABS: PLATELET ESTIMATE INCREASED
[2024-05-30 20:00] VITALS: BP 120/66; PULSE 65; RESP 19; TEMP 36.4; O2SAT 96
[2024-05-31 08:00] VITALS: BP 115/64; PULSE 57; RESP 18; TEMP 36.1; O2SAT 97
[2024-05-31 20:08] VITALS: BP 138/59; PULSE 63; RESP 18; TEMP 36.4; O2SAT 99
[2024-06-01 08:00] VITALS: BP 133/55; PULSE 60; RESP 20; TEMP 36.4; O2SAT 99
[2024-06-01 20:00] VITALS: BP 134/61; PULSE 87; RESP 19; TEMP 36.7; O2SAT 99
[2024-06-02] VITALS (10 sets, daily range): BP systolic 73–146; BP diastolic 42–66; PULSE 54–74; RESP 8–20; TEMP 36.1–36.8; O2SAT 95–98
[2024-06-02] MEDS: HYDROCODONE/ACETAMINOPHEN 10/325MG TABLET PO PRN (08:13)
[2024-06-02] MEDS: NALOXONE HCL 0.4MG/ML VIAL IV PRN (10:04)
[2024-06-02] MEDS: SODIUM CHLORIDE 0.9% 500 ML IV ONE (10:37)
[2024-06-02] MEDS ORDERED: IPRATROPIUM/ALBUTEROL 0.5-3(2.5)MG/3ML NEB HHN SCH ×2 (11:00→12:00)
[2024-06-02 13:24] LABS: DIFFERENTIAL COMMENT 1; HEMOGLOBIN. 10.3 g/dL (14.0-18.0); MEAN CORPUSCULAR HGB CONC 33.3 g/dL (31.0-37.0); MEAN CORPUSCULAR VOLUME 93.1 fL (80.0-94.0); MEAN PLATELET VOLUME 6.5 fl (7.4-10.4); PLATELET 359 x1000/uL (130-400); RED BLOOD CELL COUNT 3.33 mill/uL (4.7-6.1); RED CELL DISTRIBUTION WIDTH 13.5 % (11.6-14.6); WHITE BLOOD COUNT 6.2 x1000/uL (4.5-11.0)
[2024-06-02 13:46] LABS: CHLORIDE 98 mEq/L (98-107); SODIUM 133 mEq/L (136-145)
[2024-06-02 13:47] LABS: CARBON DIOXIDE 29 mEq/L (21-32)
[2024-06-02 13:48] LABS: CALCIUM 9.7 mg/dL (8.7-10.4)
[2024-06-02 13:52] LABS: GLUCOSE 105 mg/dL (70-105); UREA NITROGEN BLOOD 17 mg/dL (9-23)
[2024-06-02] MEDS ORDERED: IPRATROPIUM/ALBUTEROL 0.5-3(2.5)MG/3ML NEB HHN PRN (15:15)
[2024-06-03 08:00] VITALS: BP 135/66; PULSE 75; RESP 19; TEMP 35.8
[2024-06-03 08:17] VITALS: BP 135/66; PULSE 75; RESP 18; TEMP 36.8
[2024-06-03 09:30] LABS: PLATELET ESTIMATE NORMAL
[2024-06-03 20:02] VITALS: BP 127/84; PULSE 60; RESP 18; TEMP 36.8
[2024-06-04 08:00] VITALS: BP 135/70; PULSE 64; RESP 18; TEMP 35.7; O2SAT 99
[2024-06-04 20:00] VITALS: BP 124/75; PULSE 84; RESP 20; TEMP 36.5; O2SAT 98
[2024-06-04] MEDS: HYDROCODONE/ACETAMINOPHEN 5/325MG TABLET PO PRN (20:33)
[2024-06-05 08:00] VITALS: BP 130/73; PULSE 66; RESP 17; TEMP 36.6; O2SAT 97
[2024-06-05 20:00] VITALS: BP 134/72; PULSE 70; RESP 18; TEMP 36.4; O2SAT 99
[2024-06-05] MEDS ORDERED: GUAIFENESIN 200MG/10ML SUGAR FREE UDC PO PRN (20:15)
[2024-06-06 08:00] VITALS: BP 138/67; PULSE 73; RESP 18; TEMP 36.3; O2SAT 100
[2024-06-06 20:00] VITALS: BP 126/55; PULSE 67; RESP 20; TEMP 36.7; O2SAT 96
[2024-06-07 08:00] VITALS: BP 129/66; PULSE 65; RESP 20; TEMP 36.4; O2SAT 99
[2024-06-07 20:00] VITALS: BP 139/52; PULSE 56; RESP 18; TEMP 36.1; O2SAT 97
[2024-06-08 08:00] VITALS: BP 145/75; PULSE 65; RESP 18; TEMP 36.6; O2SAT 96
[2024-06-08 12:00] VITALS: BP 145/75; PULSE 65; RESP 18; TEMP 36.6; O2SAT 96
[2024-06-08 20:00] VITALS: BP 130/59; PULSE 74; RESP 18; TEMP 36.4; O2SAT 95
[2024-06-09 08:00] VITALS: BP 131/68; PULSE 68; RESP 19; TEMP 36.4; O2SAT 95
[2024-06-09] MEDS: FAMOTIDINE 20MG TABLET PO SCH (09:24)
[2024-06-09] MEDS ORDERED: CITA10TA16 PO (09:25)
[2024-06-09] MEDS ORDERED: AMLO10TA80 PO (09:25)
[2024-06-09] MEDS ORDERED: METO-539 PO (09:25)
[2024-06-09] MEDS ORDERED: FENO145 PO (09:25)
[2024-06-09 10:50] VITALS: BP 127/63; PULSE 60; TEMP 96.8; O2SAT 100
== END 2024-06-09 11:15 | disposition home health service (06) | DRG 551 ==
PROVIDERS: ADMIT Physical Medicine & Rehabilitation Spinal Cord Injury Medicine; ATTEND Internal Medicine
DX: M48.061 Spinal stenosis, lumbar region without neurogenic claudication (principal); G82.50 Quadriplegia, unspecified; K85.90 Acute pancreatitis without necrosis or infection, unspecified; N39.0 Urinary tract infection, site not specified; N17.9 Acute kidney failure, unspecified; E87.1 Hypo-osmolality and hyponatremia; F03.93 Unspecified dementia, unspecified severity, with mood disturbance; F03.94 Unspecified dementia, unspecified severity, with anxiety; F33.1 Major depressive disorder, recurrent, moderate; M47.814 Spondylosis without myelopathy or radiculopathy, thoracic region; D64.9 Anemia, unspecified; E61.1 Iron deficiency; N18.2 Chronic kidney disease, stage 2 (mild); K21.9 Gastro-esophageal reflux disease without esophagitis; E66.811 Obesity, class 1; R20.0 Anesthesia of skin; E87.5 Hyperkalemia; I95.9 Hypotension, unspecified; E78.5 Hyperlipidemia, unspecified; M25.78 Osteophyte, vertebrae; M43.17 Spondylolisthesis, lumbosacral region; M43.16 Spondylolisthesis, lumbar region; F41.1 Generalized anxiety disorder; M47.26 Other spondylosis with radiculopathy, lumbar region; M47.812 Spondylosis without myelopathy or radiculopathy, cervical region; M48.02 Spinal stenosis, cervical region; M48.04 Spinal stenosis, thoracic region; M51.16 Intervertebral disc disorders with radiculopathy, lumbar region; E78.00 Pure hypercholesterolemia, unspecified; I13.10 Hypertensive heart and chronic kidney disease without heart failure, with stage 1 through stage 4 chronic kidney disease, or unspecified chronic kidney disease; R53.1 Weakness; M54.50 Low back pain, unspecified; R53.81 Other malaise; R26.2 Difficulty in walking, not elsewhere classified; I51.7 Cardiomegaly; Z92.21 Personal history of antineoplastic chemotherapy; Z92.3 Personal history of irradiation; Z68.31 Body mass index [BMI] 31.0-31.9, adult; Z85.46 Personal history of malignant neoplasm of prostate; Z91.81 History of falling; Z79.82 Long term (current) use of aspirin; Z79.899 Other long term (current) drug therapy; I73.9 Peripheral vascular disease, unspecified
CPT/HCPCS: 36415; 74018; 80048; 80053; 82140; 82306; 82533; 82550; 82607; 82728; 82746; 83036; 83540; 83550; 83930; 83935; 84134; 84153; 84443; 85025; 92523; 93005; 93970; 97110; 97116; 97150; 97162; 97166; 97530; 97535; A4606; A6261; J0696; J2310; J7120; J8597